=== PATIENT | female | born 1990 | race Caucasian/White ===

== ENCOUNTER 2018-11-07 09:28 | Emergency (ER) | payer MEDICAID ==
[~2018-11-07] VITALS: Ht 152.4 cm; Wt 73.5 kg
[~2018-11-07 09:28] MED LIST: FERR325T18 PO; HYDR1TAB12 PO; IBUP-1222 PO
[2018-11-07 09:48] VITALS: BP 125/76
== END 2018-11-07 11:14 | disposition home or self-care (01) ==
LOC: ED 11:09
DX: S60.212A Contusion of left wrist, initial encounter (principal); J06.9 Acute upper respiratory infection, unspecified; H65.02 Acute serous otitis media, left ear; W18.30XA Fall on same level, unspecified, initial encounter; Y93.89 Activity, other specified; Y92.89 Other specified places as the place of occurrence of the external cause; Y99.8 Other external cause status
CPT/HCPCS: 71046; 99283

== ENCOUNTER 2019-09-21 08:58 | Inpatient (IN) | payer MEDICAID ==
[~2019-09-21] VITALS: Ht 152.4 cm; Wt 75.4 kg
[~2019-09-21 08:58] MED LIST changes: -HYDR1TAB12 PO; +HYDR1TAB13 PO
--- NOTE | 2019-09-21 09:23 | NUR ---
PT HAS CO COUGH AND SORE THROAT W WEAKNESS. SHE STATES "YESTERDAY I ALMOST PASSED OUT OF THE BATH TUB" PT LAYED DOWN ON LOBBY FLOOR. PT IS A&OX4, NOT IN ANY DISTRESS. CARDAIC MONITOR APPLIED. VS STABLE
[2019-09-21] MEDS ORDERED: ALBUTEROL/IPRATROPIUM 2.5MG/0.5MG, 3 ML NPPB SCH (09:30)
[2019-09-21 09:42] LABS: BASOPHILS # (AUTO) 0.03 x10^3/uL (0-0.1); BASOPHILS % (AUTO) 0 % (0-1); EOSINOPHILS # (AUTO) 0.49 x10^3/uL (0-0.4); EOSINOPHILS % (AUTO) 4 % (1-7); LYMPHOCYTES # (AUTO) 0.77 x10^3/uL (1-3.4); LYMPHOCYTES % (AUTO) 6 % (22-44); MD NO; MEAN CORPUSCULAR HEMOGLOBIN 23.3 pg (27.0-34.8); MEAN CORPUSCULAR HGB CONC 31.7 g/dL (32.4-35.8); MEAN CORPUSCULAR VOLUME 73.4 fL (80-100); MEAN PLATELET VOLUME 10.5 fL (7.4-10.4); MONOCYTES # (AUTO) 0.61 x10^3/uL (0.2-0.8); MONOCYTES % (AUTO) 5 % (2-9); NEUTROPHILS # (AUTO) 10.99 x10^3/uL (1.8-6.8); NEUTROPHILS % (AUTO) 85 % (42-75); PLATELET COUNT 183 x10^3/uL (130-400); RED BLOOD COUNT 4.73 x10^6/uL (3.82-5.3); RED CELL DISTRIBUTION WIDTH 17.4 % (9.6-15.2)
--- NOTE | 2019-09-21 09:43 | NUR ---
Pt to imaging.
[2019-09-21 09:49] LABS: ALBUMIN 4.2 g/dL (3.4-5.0); ANION GAP 5 mmol/L (5-15); CALCIUM 8.6 mg/dL (8.5-10.1); CHLORIDE 105 mmol/L (98-107); CREATININE 1.27 mg/dL (0.55-1.02)
[2019-09-21] MEDS ORDERED: ALBUTEROL/IPRATROPIUM 2.5MG/0.5MG, 3 ML ONE ×2 (09:57→15:21)
--- NOTE | 2019-09-21 10:37 | NUR ---
DOES PT HAVE IV FOR CTA?
--- NOTE | 2019-09-21 10:42 | NUR ---
PT RESTING. FAMILY AT BEDSIDE. NO NEEDS AT THIS TIME. VS STABLE
--- NOTE | 2019-09-21 10:56 | NUR ---
IV ESTABLISHED FOR CTA. DISCUSSED POC.
[2019-09-21] MEDS ORDERED: OMNIPAQUE 350 MG/ML, 100ML BOTTLE ONE (11:23)
--- NOTE | 2019-09-21 11:42 | NUR ---
PT COMPLETED CTA. AWAITING RESULTS. VS STABLE. NO NEEDS AT THIS TIME
[2019-09-21] MEDS ORDERED: SODIUM CHLORIDE FLUSH 10ML SYR IVF PRN (12:00)
--- NOTE | 2019-09-21 12:54 | NUR ---
PT AMBULATED TO BATHROOM W STEADY GATE. NO NEEDS AT THIS TIME.
--- NOTE | 2019-09-21 13:25 | NUR ---
ORDERED MEAL TRAY. DISCUSSED POC, WAITING FOR ADMIT ROOM TO BE AVAILABLE. PT UNDERSTANDING.
--- NOTE | 2019-09-21 13:48 | NUR ---
MEAL TRAY PROVIDED
--- NOTE | 2019-09-21 15:27 | NUR ---
PT RECIEVING ESMER PT STATES SHE IS SOB, UNABLE TO TAKE DEEP BREATH. NO WHEEZING THROUGH ASCULATIONS
[2019-09-21] MEDS ORDERED: ALBUTEROL/IPRATROPIUM 2.5MG/0.5MG, 3 ML NEB ONE (15:30)
--- NOTE | 2019-09-21 16:00 | NUR ---
DR. MORILLO AT BEDSIDE DISCUSSING POC
[2019-09-21] MEDS ORDERED: SODIUM CHLORIDE 0.9% 1,000 ML IV SCH (16:12)
[2019-09-21 16:22] VITALS: BP 120/79
[2019-09-21] MEDS ORDERED: ENOXAPARIN 40 MG/0.4 ML SQ SCH (16:30)
[2019-09-21] MEDS ORDERED: DOCUSATE 100 MG CAPSULE PO PRN (16:30)
[2019-09-21] MEDS ORDERED: POLYETHYLENE GLYCOL 17 GM PACKET PO PRN (16:30)
[2019-09-21] MEDS ORDERED: GUAIFENESIN/DM 200-20MG, 10ML UDC PO PRN (16:30)
[2019-09-21] MEDS ORDERED: ONDANSETRON 2MG/ML, 2ML IVPush PRN (16:30)
[2019-09-21] MEDS ORDERED: ALBUTEROL SULFATE 2.5 MG/3 ML NPPB PRN (17:00)
[2019-09-21] MEDS: DOXYCYCLINE 100 MG in DEXTROSE 5% 250 ML IV SCH (18:36)
[2019-09-21] MEDS: methylPREDNISolone SOD SUCC 125 MG/2 ML IVPush SCH (18:38)
[2019-09-21] MEDS: POTASSIUM CHLORIDE 20 MEQ TAB.ER.PRT PO SCH (18:39)
[2019-09-21 19:17] LABS: RAPID INFLUENZA A Negative (Negative); RAPID INFLUENZA B Negative (Negative)
[2019-09-21 19:19] VITALS: BP 117/72
[2019-09-22] MEDS: methylPREDNISolone SOD SUCC 125 MG/2 ML IVPush SCH ×3 (00:28→12:49)
[2019-09-22 01:41] VITALS: BP 138/87
[2019-09-22 04:52] LABS: ABSOLUTE RETICS # 0.089 x10^6/uL (0.5-2.5); RED BLOOD COUNT 4.49 x10^6/uL (3.82-5.3); RETICULOCYTE COUNT % 1.99 % (0.5-1.5)
[2019-09-22 05:01] LABS: ALBUMIN 3.8 g/dL (3.4-5.0); ANION GAP 10 mmol/L (5-15); CALCIUM 8.8 mg/dL (8.5-10.1); CHLORIDE 107 mmol/L (98-107)
[2019-09-22 05:06] LABS: % IRON SATURATION 7 % (20-55); ALANINE AMINOTRANSFERASE 24 U/L (12-78); ALKALINE PHOSPHATASE 51 U/L (45-117); BILIRUBIN,TOTAL 1.2 mg/dL (0.2-1.0); IRON LEVEL 26 mcg/dL (50-170); TOTAL IRON BINDING CAPACITY 383 mcg/dL (250-450); TOTAL PROTEIN 8.3 g/dL (6.4-8.2)
[2019-09-22 05:08] LABS: BASOPHILS # (AUTO) 0.01 x10^3/uL (0-0.1); BASOPHILS % (AUTO) 0 % (0-1); EOSINOPHILS % (AUTO) 1 % (1-7); LYMPHOCYTES # (AUTO) 0.63 x10^3/uL (1-3.4); LYMPHOCYTES % (AUTO) 4 % (22-44); MD NO; MEAN CORPUSCULAR HEMOGLOBIN 23.2 pg (27.0-34.8); MEAN PLATELET VOLUME 11.5 fL (7.4-10.4); MONOCYTES # (AUTO) 0.12 x10^3/uL (0.2-0.8); MONOCYTES % (AUTO) 1 % (2-9); NEUTROPHILS # (AUTO) 13.77 x10^3/uL (1.8-6.8); NEUTROPHILS % (AUTO) 94 % (42-75); PLATELET COUNT 201 x10^3/uL (130-400); RED BLOOD COUNT 4.48 x10^6/uL (3.82-5.3); RED CELL DISTRIBUTION WIDTH 18.1 % (9.6-15.2)
[2019-09-22] MEDS: DOXYCYCLINE 100 MG in DEXTROSE 5% 250 ML IV SCH (06:20)
[2019-09-22 07:06] VITALS: BP 134/83
[2019-09-22] MEDS: POTASSIUM CHLORIDE 20 MEQ TAB.ER.PRT PO SCH ×2 (07:46→12:49)
[2019-09-22] MEDS ORDERED: ACETAMINOPHEN 325 MG TABLET PO PRN (10:30)
[2019-09-22] MEDS ORDERED: SODIUM CHLORIDE 0.9% 1,000 ML IV SCH (10:30)
[2019-09-22] MEDS ORDERED: FERROUS SULFATE 325 MG TABLET PO SCH (10:30)
[2019-09-22 12:52] VITALS: BP 114/69
[2019-09-22] MEDS ORDERED: FERR-51 PO (13:25)
[2019-09-22] MEDS ORDERED: ACET325T26 PO (13:25)
[2019-09-22] MEDS ORDERED: ALBU90AE PO (13:25)
== END 2019-09-22 14:48 | disposition home or self-care (01) | DRG 189 ==
LOC: ED 09:52 → EDIP 11:57 → 4NE 16:16
PROVIDERS: ADMIT Internal Medicine; ATTEND Internal Medicine
DX: J96.01 Acute respiratory failure with hypoxia (principal); R65.10 Systemic inflammatory response syndrome (SIRS) of non-infectious origin without acute organ dysfunction; D50.9 Iron deficiency anemia, unspecified; D53.9 Nutritional anemia, unspecified; D72.829 Elevated white blood cell count, unspecified; E66.9 Obesity, unspecified; E87.6 Hypokalemia; J45.909 Unspecified asthma, uncomplicated; Z98.51 Tubal ligation status; Z68.32 Body mass index [BMI] 32.0-32.9, adult
CPT/HCPCS: 99285; J7620; J7060; Q9967; J2930; J7030; J7512

== ENCOUNTER 2019-09-30 03:05 | Emergency (ER) | payer MEDICAID ==
[~2019-09-30] VITALS: Ht 152.4 cm; Wt 84.8 kg
[~2019-09-30 03:05] MED LIST changes: +ACET325T26 PO; +ALBU90AE PO; +FERR-51 PO
[2019-09-30] MEDS ORDERED: DEXAMETHASONE 4 MG TABLET ONE (03:47)
[2019-09-30] MEDS ORDERED: DEXAMETHASONE 4 MG TABLET PO ONE (04:00)
[2019-09-30 04:33] VITALS: BP 119/73
[2019-09-30 05:10] LABS: FREE T4 (FREE THYROXINE) 0.27 ng/dL (0.76-1.46)
== END 2019-09-30 05:37 | disposition home or self-care (01) ==
LOC: ED 03:50
DX: J04.0 Acute laryngitis (principal); B34.9 Viral infection, unspecified; E03.4 Atrophy of thyroid (acquired); J45.909 Unspecified asthma, uncomplicated; H92.03 Otalgia, bilateral
CPT/HCPCS: 36415; 84439; 84443; 84703; 93005; 99284

== ENCOUNTER 2019-10-03 00:37 | Emergency (ER) | payer MEDICAID, OTHER ==
[~2019-10-03] VITALS: Ht 152.4 cm; Wt 83.0 kg
--- NOTE | 2019-10-03 00:58 | NUR ---
Pt presents to ed c/o sore throat and "i feel like i cant breathe." Pt appears to be in moderate wob. Recently seen here and dx w/ thyroid disorder. Pt lung sounds clear. Pt vss. All monitoring applied. Call light within reach.
[2019-10-03 01:38] LABS: BASOPHILS # (AUTO) 0.07 x10^3/uL (0-0.1); BASOPHILS % (AUTO) 1 % (0-1); EOSINOPHILS % (AUTO) 2 % (1-7); LYMPHOCYTES # (AUTO) 3.47 x10^3/uL (1-3.4); LYMPHOCYTES % (AUTO) 26 % (22-44); MD NO; MEAN CORPUSCULAR HGB CONC 31.4 g/dL (32.4-35.8); MEAN CORPUSCULAR VOLUME 73.5 fL (80-100); MEAN PLATELET VOLUME 9.9 fL (7.4-10.4); MONOCYTES # (AUTO) 1.08 x10^3/uL (0.2-0.8); MONOCYTES % (AUTO) 8 % (2-9); NEUTROPHILS # (AUTO) 8.38 x10^3/uL (1.8-6.8); NEUTROPHILS % (AUTO) 63 % (42-75); PLATELET COUNT 179 x10^3/uL (130-400); RED BLOOD COUNT 4.35 x10^6/uL (3.82-5.3); RED CELL DISTRIBUTION WIDTH 18.6 % (9.6-15.2)
[2019-10-03 01:39] LABS: ALBUMIN 3.6 g/dL (3.4-5.0); ANION GAP 6 mmol/L (5-15); CALCIUM 8.4 mg/dL (8.5-10.1); CHLORIDE 106 mmol/L (98-107); CREATININE 1.33 mg/dL (0.55-1.02)
[2019-10-03] MEDS ORDERED: OMNIPAQUE 350 MG/ML, 100ML BOTTLE ONE (02:06)
[2019-10-03 02:40] VITALS: BP 116/83
== END 2019-10-03 03:03 | disposition home or self-care (01) ==
LOC: ED 02:03
DX: E03.4 Atrophy of thyroid (acquired) (principal); E03.9 Hypothyroidism, unspecified; J45.909 Unspecified asthma, uncomplicated
CPT/HCPCS: 36415; 70491; 80048; 82040; 85025; 93005; 99284; Q9967

== ENCOUNTER 2019-12-20 23:08 | Emergency (ER) | payer OTHER ==
[~2019-12-20] VITALS: Ht 165.1 cm; Wt 86.0 kg
[2019-12-20 23:11] VITALS: BP 99/74
[2019-12-20] MEDS ORDERED: LIDOCAINE-MPF 1%, 5ML ONE ×2 (23:30→23:32)
[2019-12-20] MEDS ORDERED: OXYcodone/APAP 5/325MG TABLET PO ONE (23:30)
[2019-12-20] MEDS ORDERED: OXYcodone/APAP 5/325MG TABLET ONE (23:30)
[2019-12-20] MEDS ORDERED: LIDOCAINE-MPF 1%, 5ML INFIL ONE (23:30)
--- NOTE | 2019-12-21 00:48 | NUR ---
Discharge instructions given. All questions and concerns addressed. Patient ambulatory with a steady gait. Belongings with patient.
== END 2019-12-21 01:01 | disposition home or self-care (01) ==
LOC: ED 23:18
DX: N76.2 Acute vulvitis (principal); N76.4 Abscess of vulva; J45.909 Unspecified asthma, uncomplicated; E03.9 Hypothyroidism, unspecified
CPT/HCPCS: 56405; 99284

== ENCOUNTER 2019-12-22 14:02 | Emergency (ER) | payer SELFPAY ==
[~2019-12-22] VITALS: Ht 152.4 cm; Wt 85.7 kg
[2019-12-22 14:12] VITALS: BP 109/70
== END 2019-12-22 15:00 | disposition home or self-care (01) ==
LOC: ED 14:55
DX: N76.4 Abscess of vulva (principal); E03.9 Hypothyroidism, unspecified; J45.909 Unspecified asthma, uncomplicated
CPT/HCPCS: 99281

== ENCOUNTER 2020-08-02 12:04 | Emergency (ER) | payer MEDICAID ==
[~2020-08-02] VITALS: Ht 152.4 cm; Wt 88.2 kg
--- NOTE | 2020-08-02 12:41 | NUR ---
TO ROOM AT THIS TIME.
[2020-08-02 13:07] LABS: BASOPHILS % (AUTO) 1 % (0-1); EOSINOPHILS % (AUTO) 6 % (1-7); LYMPHOCYTES % (AUTO) 20 % (22-44); MEAN CORPUSCULAR HEMOGLOBIN 26.3 pg (27.0-34.8); MEAN CORPUSCULAR HGB CONC 32.2 g/dL (32.4-35.8); MEAN PLATELET VOLUME 9.7 fL (7.4-10.4); MONOCYTES % (AUTO) 7 % (2-9); NEUTROPHILS % (AUTO) 67 % (42-75); PLATELET COUNT 204 x10^3/uL (130-400); RED BLOOD COUNT 4.75 x10^6/uL (3.82-5.3)
[2020-08-02 13:19] LABS: ALANINE AMINOTRANSFERASE 30 U/L (12-78); ALBUMIN 4.8 g/dL (3.4-5.0); ANION GAP 4 mmol/L (5-15); CALCIUM 9.4 mg/dL (8.5-10.1); CHLORIDE 103 mmol/L (98-107); CREATININE 1.42 mg/dL (0.55-1.02)
[2020-08-02 13:22] LABS: ALKALINE PHOSPHATASE 55 U/L (45-117); BILIRUBIN,TOTAL 2.3 mg/dL (0.2-1.0); TOTAL PROTEIN 9.5 g/dL (6.4-8.2)
[2020-08-02 13:26] LABS: MD SCAN
[2020-08-02] MEDS ORDERED: ALBUTEROL SULFATE 2.5 MG/3 ML NPPB ONE (13:30)
[2020-08-02] MEDS ORDERED: LORazepam 1MG TABLET PO ONE (13:30)
[2020-08-02] MEDS ORDERED: LORazepam 1MG TABLET ONE (13:40)
[2020-08-02] MEDS ORDERED: ALBUTEROL SULFATE 2.5 MG/3 ML ONE (13:41)
--- NOTE | 2020-08-02 14:00 | NUR ---
NEB STARTED FOR PT. PT VSS, PT RESTING CALMLY IN BED AT THIS TIME.
[2020-08-02 14:39] VITALS: BP 127/79
== END 2020-08-02 14:40 | disposition home or self-care (01) ==
LOC: ED 13:09
DX: F41.1 Generalized anxiety disorder (principal); J98.01 Acute bronchospasm; R94.31 Abnormal electrocardiogram [ECG] [EKG]
CPT/HCPCS: 36415; 71046; 80053; 85025; 93005; 94640; 99285; J7613

== ENCOUNTER 2020-12-21 08:40 | Emergency (ER) | payer MEDICAID ==
[~2020-12-21] VITALS: Ht 152.4 cm; Wt 88.1 kg
[2020-12-21 08:44] VITALS: BP 145/93
--- NOTE | 2020-12-21 08:55 | NUR ---
PA and RN at bedside for exams. Large abcess to R cheeck with other abcessed areas to L medial breast and L underarm area also shown by pt. Discussion of MRSA and plan of care made with PA and pt. Awaiting orders for abx now.
== END 2020-12-21 09:38 | disposition home or self-care (01) ==
LOC: ED 09:08
DX: L02.01 Cutaneous abscess of face (principal); N93.8 Other specified abnormal uterine and vaginal bleeding; N92.1 Excessive and frequent menstruation with irregular cycle; E03.9 Hypothyroidism, unspecified; J45.909 Unspecified asthma, uncomplicated
CPT/HCPCS: 99283